=== PATIENT | male | born 1970 | race Caucasian/White ===

== ENCOUNTER 2016-07-25 08:00 | Day surgery (SDC) | payer MEDICAID ==
[~2016-07-25 08:00] MED LIST: ACETAMINOPHEN 1,000 MG/100 ML BTL IV ONE
[2016-07-25] MEDS ORDERED: HYDROCODONE/APAP 7.5/325MG TABLET PO ONE (11:31)
[2016-07-25] MEDS ORDERED: BUPIVACAINE 0.25% W/EPI MPF 30ML VIAL IVP ONE (11:31)
[2016-07-25] MEDS ORDERED: SEVOFLURANE 250 ML INH ONE (14:01)
[2016-07-25] MEDS ORDERED: FENTANYL PF 100MCG/2ML VIAL IV ONE (14:01)
[2016-07-25] MEDS ORDERED: ONDANSETRON HCL IV 4 MG/2 ML VIAL IVP ONE (14:01)
[2016-07-25] MEDS ORDERED: LIDOCAINE 2% MDV (20MG/ML) 20ML VIAL IV ONE (14:01)
[2016-07-25] MEDS ORDERED: MIDAZOLAM HCL 2MG/2ML VIAL IV ONE (14:01)
[2016-07-25] MEDS ORDERED: KETOROLAC 30 MG/ML VIAL IVP ONE (14:01)
[2016-07-25] MEDS ORDERED: PROPOFOL 10 MG/ML VIAL IV ONE (14:01)
--- NOTE | 2016-07-27 10:57 | Operative Note ---
DATE OF SURGERY: 07/25/2016 Surgeon: Del Acevedo DO PREOPERATIVE DIAGNOSES: 1. Torn medial meniscus of the right knee. 2. Osteoarthritis of the right knee. POSTOPERATIVE DIAGNOSES: 1. Torn medial and lateral menisci, right knee. 2. Synovitis, right knee (2 compartments). 3. Osteoarthritis, right knee. OPERATION: 1. Arthroscopic partial medial and lateral meniscectomy, right knee. 2. Arthroscopic partial synovectomy, right knee (2 compartments). 3. Arthroscopic chondroplasty of medial femoral condyle, lateral femoral condyle, trochlea, and patella, right knee. DESCRIPTION OF PROCEDURE: This 46-year-old male was taken to the operating room and placed in the supine position on the operating room table. A general anesthetic was administered and the right lower extremity was elevated. It was exsanguinated and the tourniquet inflated to 300 mmHg. Arthroscopic knee pro applied. Right knee prepped with Hibiclens and draped in the usual sterile fashion. An inferolateral portal was established for the 4 mm arthroscope and initial evaluation of the joint demonstrated extensive synovitis in the suprapatellar pouch. There were loose fragments of articular cartilage attached to the synovial membrane and partial synovectomy and removal of these cartilaginous bodies was performed. 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 The patella also demonstrated grade 3 changes noted throughout with loose fragment and articular cartilage being present there as well, and chondroplasty was performed. Extensive synovitis in the area of the fat pad that was also evidence of partial synovectomy performed. The medial compartment was entered and the medial femoral condyle also demonstrated the same severe grade 3 changes noted as what we saw in the trochlea with the tibial plateau demonstrating grade 2 changes. A complex tear of the posterior horn of the medial meniscus was present and this apex of the tear being at approximately the 1:30 position. Utilizing the basket forceps and rotating shaver, we resected unstable fragments of the meniscus resecting back to the apex on a tapering in each direction and it was re-probed and confirmed to be stable. Chondroplasty was performed to stabilize the articular cartilage in the medial femoral condyle too. There were no normal areas of articular cartilage present in this patient's knee other than very, very small patches noted on the medial and lateral tibial plateaus. The intracondylar notch was examined and severe osteoarthritic change was noted with significant osteophyte formation noted impinging upon the intracondylar notch. In addition, there was evidence of a tear in the anterior horn of the lateral meniscus and resection of the torn portion of the anterior horn was resected. This was from approximately the 5- to 6-o'clock position around to the 8-o'clock position. The entire lateral femoral condyle also demonstrated advanced degenerative disease. Chondroplasty was performed. Grade 3 changes noted there as well. The joint was copiously irrigated and suctioned removing all loose fragments of articular cartilage, and no additional findings were present. The joint was suctioned. The instruments were removed. The portals were infiltrated with 0.25% Marcaine with epinephrine and sterile dressings applied. Tourniquet and knee pro released and the patient taken to the recovery room in satisfactory condition. GROSS PATHOLOGY: Tears of both the medial and lateral menisci were present as described. In addition, severe grade 3 chondromalacia noted in medial and lateral femoral condyle, trochlea, and patella with grade 2 changes noted on both tibial plateaus as described. BETH
== END 2016-07-25 10:30 | disposition home or self-care (01) ==
LOC: SUR 08:00
PROVIDERS: ATTEND Orthopaedic Surgery
DX: S83.241A Other tear of medial meniscus, current injury, right knee, initial encounter (principal); S83.271A Complex tear of lateral meniscus, current injury, right knee, initial encounter; M17.11 Unilateral primary osteoarthritis, right knee
CPT/HCPCS: 29880; 29877; 01400; J1885; J2405; J3010